=== PATIENT | male | born 2000 | race Caucasian/White ===

== ENCOUNTER 2022-02-23 11:02 | Emergency (ER) | payer OTHER | END 2022-02-23 13:48 | disposition home or self-care (01) | LOC: ER1 11:02 | DX: S61.211A Laceration without foreign body of left index finger without damage to nail, initial encounter (principal); W31.89XA Contact with other specified machinery, initial encounter; Y99.0 Civilian activity done for income or pay; Z23 Encounter for immunization | CPT/HCPCS: 12001; 73130; 90471; 90715; 99283 ==